=== PATIENT | female | born 1990 | race Caucasian/White ===

== ENCOUNTER 2016-07-26 19:18 | Emergency (ER) | payer OTHER ==
[~2016-07-26] VITALS: Ht 157.5 cm; Wt 50.0 kg
[~2016-07-26 19:18] MED LIST: TRAM50TA PO
[2016-07-26] MEDS ORDERED: SODIUM CHLOR 0.9% 1000 ML INJ 1,000 ML IV SCH ×2 (19:35→21:13)
[2016-07-26 19:39] VITALS: BP 96/51; PULSE 147; RESP 18; TEMP 99; O2SAT 100
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
[2016-07-26] MEDS ORDERED: SODIUM CHLORIDE 0.9% FLUSH 5 ML FLUSH IV FLUSH PRN (19:45)
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
[2016-07-26 20:15] LABS: AUTOMATED NEUTROPHIL # 5.4 TH/MM3 (1.8-7.7); BASOPHIL % 0.4 % (0.0-2.0); EOSINOPHIL % 0.2 % (0.0-4.0); HEMATOCRIT 32.4 % (35.0-46.0); HEMO FLAGS DIFF FINAL; LYMPH % 29.3 % (9.0-44.0); LYMPHOCYTE # 2.7 TH/MM3 (1.0-4.8); MEAN CELL VOLUME 67.4 FL (80.0-100.0); MEAN CORPUSCULAR HEMOGLOBIN 21.4 PG (27.0-34.0); MEAN CORPUSCULAR HGB CONC 31.7 % (32.0-36.0); MONO % 11.2 % (0.0-8.0); NEUT % 58.9 % (16.0-70.0); PLATELET COUNT 207 TH/MM3 (150-450); RED CELL DISTRIBUTION WIDTH 17.6 % (11.6-17.2); WHITE BLOOD COUNT 9.3 TH/MM3 (4.0-11.0)
[2016-07-26 20:37] LABS: ANION GAP 9 MEQ/L (5-15); AST (GOT) 6 U/L (15-37); BLOOD UREA NITROGEN 11 MG/DL (7-18); CHLORIDE 110 MEQ/L (98-107); GLOMERULAR FILTRATION RATE 123 ML/MIN (>89); POTASSIUM 3.1 MEQ/L (3.5-5.1); SODIUM (NA) 143 MEQ/L (136-145)
[2016-07-26 20:38] LABS: ALT (GPT) 15 U/L (10-53)
[2016-07-26 20:40] LABS: ALKALINE PHOSPHATASE 62 U/L (45-117); TOTAL BILIRUBIN ADULT 0.4 MG/DL (0.2-1.0)
[2016-07-26] MEDS ORDERED: CLINDAMYCIN 150 MG CAP PO ONE (21:15)
[2016-07-26] MEDS ORDERED: POTASSIUM CHLORIDE 25 MEQ EFFERVESCENT TAB PO ONE (21:15)
[2016-07-26 21:20] VITALS: BP 125/62; PULSE 92; RESP 18; O2SAT 100
[2016-07-26] MEDS ORDERED: HALOPERIDOL LACTATE 5 MG/ML AMP IM ONE (22:00)
[2016-07-26] MEDS ORDERED: diphenhydrAMINE HCL 50 MG/ML VIAL IM ONE (22:00)
[2016-07-26] MEDS ORDERED: CLIN1CAP5 PO (22:24)
[2016-07-26 23:30] VITALS: BP 139/87; PULSE 110; RESP 18; O2SAT 100
--- NOTE | 2016-07-27 07:09 | EKG ---
Date Performed: 07/26/2016 Time Performed: 19:49:26 PTAGE: 25 years EKG: SINUS TACHYCARDIA WITH SHORT MO INTERVAL NONSPECIFIC T-WAVE ABNORMALITY ABNORMAL RHYTHM ECG INTERPRETATION BASED ON A DEFAULT AGE OF 41 YEARS NO PREVIOUS TRACING DOCTOR: Malcom Abel Interpretating Date/Time 07/27/2016 07:09:04
== END 2016-07-27 06:59 | disposition home or self-care (01) ==
LOC: NEPE 19:18
DX: F19.129 Other psychoactive substance abuse with intoxication, unspecified (principal); K04.7 Periapical abscess without sinus; F17.210 Nicotine dependence, cigarettes, uncomplicated; R00.0 Tachycardia, unspecified
CPT/HCPCS: 80053; 80307; 83605; 84703; 85025; 93005; 96372; 99285; J1200; J1630; J7030

== ENCOUNTER 2016-10-09 15:18 | Emergency (ER) | payer OTHER ==
[~2016-10-09] VITALS: Ht 167.6 cm; Wt 72.0 kg
[~2016-10-09 15:18] MED LIST changes: +CLIN1CAP5 PO
[2016-10-09 15:21] VITALS: BP 154/66; PULSE 75; RESP 16; TEMP 98.4; O2SAT 99
[2016-10-09] MEDS ORDERED: SODIUM CHLOR 0.9% 1000 ML INJ 1,000 ML IV SCH (15:49)
[2016-10-09] MEDS ORDERED: ALUMINUM/MAGNESIUM/SIMETH 30 ML CUP PO ONE (16:00)
[2016-10-09] MEDS ORDERED: ONDANSETRON HCL 4 MG/2 ML VIAL IVP ONE (16:00)
[2016-10-09] MEDS ORDERED: SODIUM CHLORIDE 0.9% FLUSH 10 ML FLUSH IV FLUSH PRN (16:00)
[2016-10-09] MEDS ORDERED: PANTOPRAZOLE SODIUM 40 MG VIAL IVP ONE (16:00)
[2016-10-09] MEDS ORDERED: LIDOCAINE VISCOUS 2% SOLN 15 ML UDC PO ONE (16:00)
--- NOTE | 2016-10-09 16:04 | PD ---
HPI . Vomiting and upper abdominal pain Chief Complaint: GI Complaint Time Seen by Provider: 15:42 Travel History International Travel<30 days: No Contact w/Intl Traveler<30days: No Traveled to known affect area: No History of Present Illness HPI This patient presents complaining with vomiting and upper abdominal pain which started early this morning. This patient reports a long history of similar problems. She states that she had been on ulcer medication but stopped it about a month ago that did not seem to help. She states she has approximately 3 episodes per month of epigastric pain associated with vomiting. 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 She is unaware of any modifying factors. Her symptoms are severe. PFSH Past Medical History Depression: Yes (BIPOLAR DEPRESSION) Diminished Hearing: No Immunizations Current: Yes Ulcer: Yes Influenza Vaccination: No ?: Not LMP: 2 WEEKS Menopausal: No : 0 Para: 0 Miscarriage: 0 : 0 Ovarian Cysts: Yes Social History Alcohol Use: Yes (3-4 x/ MONTH) Tobacco Use: Yes (SMOKES, 1 PACK/ DAY) Substance Use: Yes (MARIJUANA) Allergies-Medications (Allergen,Severity, Reaction): Coded Allergies: No Known Allergies (Verified , 10/09/16) Reported Meds & Prescriptions Reported Meds & Active Scripts Active No Active Prescriptions or Reported Medications Review of Systems Except as stated in HPI: all other systems reviewed are Neg Cardiovascular: Positive: Chest Pain or Discomfort Gastrointestinal: Positive: Nausea, Vomiting, Abdominal Pain Physical Exam Narrative GENERAL: Patient was actively vomiting when I initially saw her. A few minutes later, she seemed to be resting comfortably on the stretcher. SKIN: Warm and dry. HEAD: Atraumatic. Normocephalic. EYES: Pupils equal and round. Extraocular movements are intact. ENT: No nasal bleeding or discharge. Mucous membranes pink and moist. NECK: Trachea midline. Neck is supple. CARDIOVASCULAR: Regular rate and rhythm. Heart sounds are normal. RESPIRATORY: No accessory muscle use. Lungs are clear with good air movement throughout. GASTROINTESTINAL: Abdomen soft. Normal bowel sounds. Diffuse upper abdominal tenderness with no guarding or rebound. No point tenderness. MUSCULOSKELETAL: No obvious deformities. No edema. NEUROLOGICAL: Awake and alert. No obvious cranial nerve deficits. Motor grossly within normal limits. Normal speech. PSYCHIATRIC: Appropriate mood and affect; insight and judgment normal. Data Data Last Documented VS Vital Signs Date Time Temp Pulse Resp B/P (MAP) Pulse Ox O2 Delivery O2 Flow Rate FiO2 10/09/16 15:21 98.4 75 16 154/66 (95) 99 Orders Orders Complete Blood Count With Diff (10/09/16 15:49) Comprehensive Metabolic Panel (10/09/16 15:49) Lipase (10/09/16 15:49) Iv Access Insert/Monitor (10/09/16 15:49) Ondansetron Inj (Zofran Inj) (10/09/16 16:00) Pantoprazole Inj (Protonix Inj) (10/09/16 16:00) Sodium Chlor 0.9% 1000 Ml Inj (Ns 1000 M (10/09/16 15:49) Sodium Chloride 0.9% Flush (Ns Flush) (10/09/16 16:00) Al-Mag Hy-Si 40-40-4 Mg/Ml Liq (Mag-Al P (10/09/16 16:00) Lidocaine 2% Viscous (Xylocaine 2% Visco (10/09/16 16:00) Ed Urine Pregnancytest Poc (10/09/16 15:49) Prochlorperazine Inj (Compazine Inj) (10/09/16 16:45) Diphenhydramine Inj (Benadryl Inj) (10/09/16 16:45) Sodium Chlor 0.9% 1000 Ml Inj (Ns 1000 M (10/09/16 17:15) Labs Laboratory Tests Test 10/09/16 15:50 White Blood Count 11.2 TH/MM3 Red Blood Count 5.92 MIL/MM3 Hemoglobin 12.5 GM/DL Hematocrit 40.7 % Mean Corpuscular Volume 68.8 FL Mean Corpuscular Hemoglobin 21.1 PG Mean Corpuscular Hemoglobin Concent 30.7 % Red Cell Distribution Width 16.6 % Platelet Count 362 TH/MM3 Mean Platelet Volume 10.3 FL Neutrophils (%) (Auto) 81.6 % Lymphocytes (%) (Auto) 15.7 % Monocytes (%) (Auto) 2.0 % Eosinophils (%) (Auto) 0.2 % Basophils (%) (Auto) 0.5 % Neutrophils # (Auto) 9.1 TH/MM3 Lymphocytes # (Auto) 1.8 TH/MM3 Monocytes # (Auto) 0.2 TH/MM3 Eosinophils # (Auto) 0.0 TH/MM3 Basophils # (Auto) 0.1 TH/MM3 CBC Comment AUTO DIFF Differential Comment AUTO DIFF CONFIRMED Blood Urea Nitrogen 10 MG/DL Creatinine 0.78 MG/DL Random Glucose 112 MG/DL Total Protein 8.6 GM/DL Albumin 3.9 GM/DL Calcium Level 9.5 MG/DL Alkaline Phosphatase 71 U/L Aspartate Amino Transf (AST/SGOT) 17 U/L Alanine Aminotransferase (ALT/SGPT) 21 U/L Total Bilirubin 0.3 MG/DL Sodium Level 138 MEQ/L Potassium Level 4.1 MEQ/L Chloride Level 102 MEQ/L Carbon Dioxide Level 26.4 MEQ/L Anion Gap 10 MEQ/L Estimat Glomerular Filtration Rate 90 ML/MIN Lipase 121 U/L MDM Medical Decision Making Medical Screen Exam Complete: Yes Emergency Medical Condition: Yes Medical Record Reviewed: Yes (this patient has been seen here intermittently dating back to 2008 with similar complaints. It looks like she is usually treated with a proton pump inhibitor and a GI cocktail.) Differential Diagnosis Differential diagnosis of abdominal pain includes but is not limited to gastritis, pancreatitis, hepatitis, gastroenteritis, gallbladder disease, constipation, urinary retention, UTI, peptic ulcer disease, diverticulitis or appendicitis Narrative Course This patient presents complaining with cyclical episodes of epigastric pain and vomiting. This is been going on since at least 2008. I will treat her here with IV fluids, IV Protonix and a GI cocktail. CBC & BMP Diagram 10/09/16 15:50 Total Protein 8.6 H, Albumin 3.9, Calcium Level 9.5, Alkaline Phosphatase 71, Aspartate Amino Transf (AST/SGOT) 17, Alanine Aminotransferase (ALT/SGPT) 21, Total Bilirubin 0.3 Lipase is normal. This patient's symptoms had improved following medication. However, she has started vomiting again. She is also continuing to complain with pain. I have subsequently treated the patient with Compazine and Benadryl along with an additional liter of fluid. The history, exam, diagnostic testing, and current condition do not suggest any significant pathology to warrant further testing, continued ED treatment, admission, or surgical evaluation at this point. The patient's condition is stable and appropriate for discharge. Diagnosis Primary Impression: Epigastric pain Additional Impression: Vomiting Qualified Codes: G43.A0 - Cyclical vomiting, not intractable Referrals: Primary Care Physician Dr. Lake Patient Instructions: Acute Nausea and Vomiting (DC), Epigastric Pain (ED), General Instructions Scripts Promethazine (Phenergan) 25 Mg Tablet 25 MG PO Q6H Y for NAUSEA OR VOMITING, #30 TAB 0 Refills Prov: Marcelle Burnette MD 10/09/16 Sucralfate (Carafate) 1 Gm Tab 1 GM PO QID for Ulcer Prevention, #120 TAB 0 Refills On empty stomach Prov: Marcelle Burnette MD 10/09/16 Omeprazole Magnesium (Prilosec) 20 Mg Tab 20 MG PO DAILY, #30 Prov: Marcelle Burnette MD 10/09/16 Disposition: 01 DISCHARGE HOME Condition: Stable Marcelle Burnette MD Oct 09, 2016 16:04
[2016-10-09 16:07] LABS: AUTOMATED NEUTROPHIL # 9.1 TH/MM3 (1.8-7.7); BASOPHIL # 0.1 TH/MM3 (0-0.2); BASOPHIL % 0.5 % (0.0-2.0); EOSINOPHIL % 0.2 % (0.0-4.0); HEMATOCRIT 40.7 % (35.0-46.0); LYMPH % 15.7 % (9.0-44.0); LYMPHOCYTE # 1.8 TH/MM3 (1.0-4.8); MEAN CELL VOLUME 68.8 FL (80.0-100.0); MEAN CORPUSCULAR HEMOGLOBIN 21.1 PG (27.0-34.0); MEAN CORPUSCULAR HGB CONC 30.7 % (32.0-36.0); NEUT % 81.6 % (16.0-70.0); PLATELET COUNT 362 TH/MM3 (150-450); RED BLOOD COUNT 5.92 MIL/MM3 (4.00-5.30); RED CELL DISTRIBUTION WIDTH 16.6 % (11.6-17.2); WHITE BLOOD COUNT 11.2 TH/MM3 (4.0-11.0)
[2016-10-09 16:08] LABS: CHLORIDE 102 MEQ/L (98-107); POTASSIUM 4.1 MEQ/L (3.5-5.1); SODIUM (NA) 138 MEQ/L (136-145)
[2016-10-09 16:10] LABS: HEMO FLAGS AUTO DIFF
[2016-10-09 16:12] LABS: ANION GAP 10 MEQ/L (5-15); BICARBONATE 26.4 MEQ/L (21.0-32.0); BLOOD UREA NITROGEN 10 MG/DL (7-18)
[2016-10-09 16:15] LABS: ALT (GPT) 21 U/L (10-53); AST (GOT) 17 U/L (15-37); GLOMERULAR FILTRATION RATE 90 ML/MIN (>89)
[2016-10-09 16:17] LABS: TOTAL BILIRUBIN ADULT 0.3 MG/DL (0.2-1.0)
[2016-10-09 16:18] LABS: ALKALINE PHOSPHATASE 71 U/L (45-117)
[2016-10-09 16:34] LABS: SCAN/DIFF AUTO DIFF CONFIRMED
[2016-10-09] MEDS ORDERED: PROCHLORPERAZINE INJ 10 MG/2 ML VIAL IV PUSH ONE (16:45)
[2016-10-09] MEDS ORDERED: diphenhydrAMINE HCL 50 MG/ML VIAL IV PUSH ONE (16:45)
[2016-10-09] MEDS ORDERED: SODIUM CHLOR 0.9% 1000 ML INJ 1,000 ML IV ONE (17:15)
[2016-10-09] MEDS ORDERED: PROM25TA10 PO (17:39)
[2016-10-09] MEDS ORDERED: CARA1TAB6 PO (17:39)
[2016-10-09] MEDS ORDERED: PRIL20TA2 PO (17:39)
[2016-10-09 17:46] VITALS: BP 119/64; PULSE 77; RESP 18; O2SAT 98
== END 2016-10-09 18:10 | disposition home or self-care (01) ==
LOC: PHED 15:18
DX: R10.13 Epigastric pain (principal); G43.A0 Cyclical vomiting, in migraine, not intractable; F17.210 Nicotine dependence, cigarettes, uncomplicated
CPT/HCPCS: 80053; 83690; 84703; 85025; 96361; 96374; 96375; 99284; C9113; J0780; J1200; J2405; J7030

== ENCOUNTER 2017-04-06 13:10 | Emergency (ER) | payer OTHER ==
[~2017-04-06] VITALS: Ht 167.6 cm; Wt 77.0 kg
[~2017-04-06 13:10] MED LIST changes: +CARA1TAB6 PO; -CLIN1CAP5 PO; +PRIL20TA2 PO; +PROM25TA10 PO; -TRAM50TA PO
[2017-04-06] MEDS ORDERED: SODIUM CHLOR 0.9% 1000 ML INJ 1,000 ML IV ONE ×2 (13:19→14:45)
[2017-04-06 13:22] VITALS: BP 126/61; PULSE 54; RESP 16; TEMP 97.6
[2017-04-06] MEDS ORDERED: diphenhydrAMINE HCL 50 MG/ML VIAL IV PUSH ONE (13:30)
[2017-04-06] MEDS ORDERED: PROCHLORPERAZINE INJ 10 MG/2 ML VIAL IV PUSH ONE (13:30)
[2017-04-06] MEDS ORDERED: SODIUM CHLORIDE 0.9% FLUSH 10 ML FLUSH IVF PRN (13:30)
--- NOTE | 2017-04-06 13:30 | PD ---
HPI . Vomiting Chief Complaint: GI Complaint Time Seen by Provider: 13:19 Travel History International Travel<30 days: No Contact w/Intl Traveler<30days: No Traveled to known affect area: No History of Present Illness HPI This patient presents by [facility] for the acute onset of abdominal pain associated with nausea and vomiting. Symptoms started this morning and have been continuous since that time. Her vomitus has become bilious. Her abdominal pain is upper and is rated 8/10. PFSH Past Medical History Depression: Yes (BIPOLAR DEPRESSION) Diminished Hearing: No Immunizations Current: Yes Ulcer: Yes ?: Not LMP: 04/05/17 Menopausal: No : 0 Para: 0 Miscarriage: 0 : 0 Ovarian Cysts: Yes Past Surgical History Surgical History: No Previous Surgery Social History Alcohol Use: No Tobacco Use: Yes (SMOKES, 1 PACK/ DAY) Substance Use: Yes (MARIJUANA) Allergies-Medications (Allergen,Severity, Reaction): Coded Allergies: amoxicillin (Verified Allergy, Unknown, 04/06/17) Reported Meds & Prescriptions Reported Meds & Active Scripts Active Phenergan (Promethazine HCl) 25 Mg Tablet 25 Mg PO Q6H PRN Carafate (Sucralfate) 1 Gm Tab 1 Gm PO QID On empty stomach Prilosec (Omeprazole Magnesium) 20 Mg Tab 20 Mg PO DAILY Review of Systems Except as stated in HPI: all other systems reviewed are Neg General / Constitutional: No: Fever, Chills Gastrointestinal: Positive: Nausea, Vomiting, Abdominal Pain Physical Exam Narrative GENERAL: Actively vomiting. SKIN: warm/dry. HEAD: Normocephalic. Atraumatic. EYES: Pupils equal and round. No scleral icterus. No injection or drainage. ENT: No nasal bleeding or discharge. Mucous membranes pink and moist. NECK: Trachea midline. Full range of motion without pain.. CARDIOVASCULAR: Regular rate and rhythm. RESPIRATORY: No accessory muscle use. Clear to auscultation. Breath sounds equal bilaterally. GASTROINTESTINAL: Abdomen soft. Nontender. Bowel sounds present. Nondistended. MUSCULOSKELETAL: No obvious deformities. NEUROLOGICAL: Awake and alert. No obvious cranial nerve deficits. Motor grossly within normal limits. Normal speech. PSYCHIATRIC: Appropriate mood and affect; insight and judgment normal. Data Data Last Documented VS Vital Signs Date Time Temp Pulse Resp B/P (MAP) Pulse Ox O2 Delivery O2 Flow Rate FiO2 04/06/17 13:22 97.6 54 16 126/61 (82) Orders Orders Complete Blood Count With Diff (04/06/17 13:19) Comprehensive Metabolic Panel (04/06/17 13:19) Lipase (04/06/17 13:19) Iv Access Insert/Monitor (04/06/17 13:19) Sodium Chlor 0.9% 1000 Ml Inj (Ns 1000 M (04/06/17 13:19) Sodium Chloride 0.9% Flush (Ns Flush) (04/06/17 13:30) Ed Urine Pregnancytest Poc (04/06/17 13:19) Diphenhydramine Inj (Benadryl Inj) (04/06/17 13:30) Prochlorperazine Inj (Compazine Inj) (04/06/17 13:30) Labs Laboratory Tests Test 04/06/17 13:40 White Blood Count 14.3 TH/MM3 Red Blood Count 5.57 MIL/MM3 Hemoglobin 11.9 GM/DL Hematocrit 37.4 % Mean Corpuscular Volume 67.1 FL Mean Corpuscular Hemoglobin 21.4 PG Mean Corpuscular Hemoglobin Concent 31.8 % Red Cell Distribution Width 16.5 % Platelet Count 206 TH/MM3 Mean Platelet Volume 10.6 FL Neutrophils (%) (Auto) 87.6 % Lymphocytes (%) (Auto) 8.3 % Monocytes (%) (Auto) 3.7 % Eosinophils (%) (Auto) 0.1 % Basophils (%) (Auto) 0.3 % Neutrophils # (Auto) 12.5 TH/MM3 Lymphocytes # (Auto) 1.2 TH/MM3 Monocytes # (Auto) 0.5 TH/MM3 Eosinophils # (Auto) 0.0 TH/MM3 Basophils # (Auto) 0.0 TH/MM3 CBC Comment DIFF FINAL Differential Comment Blood Urea Nitrogen 14 MG/DL Creatinine 0.83 MG/DL Random Glucose 112 MG/DL Total Protein 7.6 GM/DL Albumin 4.1 GM/DL Calcium Level 9.2 MG/DL Alkaline Phosphatase 73 U/L Aspartate Amino Transf (AST/SGOT) 11 U/L Alanine Aminotransferase (ALT/SGPT) 10 U/L Total Bilirubin 0.2 MG/DL Sodium Level 138 MEQ/L Potassium Level 3.7 MEQ/L Chloride Level 107 MEQ/L Carbon Dioxide Level 23.3 MEQ/L Anion Gap 8 MEQ/L Estimat Glomerular Filtration Rate 84 ML/MIN Lipase 94 U/L MDM Medical Decision Making Medical Screen Exam Complete: Yes Emergency Medical Condition: Yes Differential Diagnosis Differential diagnosis includes but is not limited to viral gastritis, food poisoning, pancreatitis, pneumonia, hepatitis, acute coronary syndrome, Narrative Course This patient presents with the acute onset of nausea and vomiting associated with upper abdominal pain. She was treated by [facility] with Zofran. She continues to have active vomiting despite the Zofran. I will treat her with Compazine and Benadryl. She will also be treated with IV fluids. Routine abdominal pain labs are pending. The patient has had no further vomiting since being treated with Compazine and Benadryl. CBC & BMP Diagram 04/06/17 13:40 Total Protein 7.6, Albumin 4.1, Calcium Level 9.2, Alkaline Phosphatase 73, Aspartate Amino Transf (AST/SGOT) 11 L, Alanine Aminotransferase (ALT/SGPT) 10, Total Bilirubin 0.2 Lipase 94 The history, exam, diagnostic testing, and current condition do not suggest any significant pathology to warrant further testing, continued ED treatment, admission, or surgical evaluation at this point. No EMC was found. The patient 's condition is stable and appropriate for discharge. Diagnosis Primary Impression: Vomiting Qualified Codes: R11.14 - Bilious vomiting Additional Impression: Abdominal pain Qualified Codes: R10.84 - Generalized abdominal pain Patient Instructions: Acute Nausea and Vomiting (DC), General Instructions Med/Other Pt SpecificInfo: Prescription(s) given Scripts Promethazine Supp (Phenergan Supp) 25 Mg Supp 25 MG RECTAL Q6H Y for NAUSEA OR VOMITING, #10 SUPP 0 Refills Prov: Marcelle Burnette MD 04/06/17 Disposition: 01 DISCHARGE HOME Condition: Stable Marcelle Burnette MD Apr 06, 2017 13:30
[2017-04-06 14:01] LABS: AUTOMATED NEUTROPHIL # 12.5 TH/MM3 (1.8-7.7); BASOPHIL % 0.3 % (0.0-2.0); EOSINOPHIL % 0.1 % (0.0-4.0); HEMATOCRIT 37.4 % (35.0-46.0); HEMOGLOBIN 11.9 GM/DL (11.6-15.3); LYMPH % 8.3 % (9.0-44.0); LYMPHOCYTE # 1.2 TH/MM3 (1.0-4.8); MEAN CELL VOLUME 67.1 FL (80.0-100.0); MEAN CORPUSCULAR HEMOGLOBIN 21.4 PG (27.0-34.0); MEAN CORPUSCULAR HGB CONC 31.8 % (32.0-36.0); MEAN PLATELET VOLUME 10.6 FL (7.0-11.0); MONO % 3.7 % (0.0-8.0); MONOCYTE # 0.5 TH/MM3 (0-0.9); NEUT % 87.6 % (16.0-70.0); PLATELET COUNT 206 TH/MM3 (150-450); RED BLOOD COUNT 5.57 MIL/MM3 (4.00-5.30); RED CELL DISTRIBUTION WIDTH 16.5 % (11.6-17.2); WHITE BLOOD COUNT 14.3 TH/MM3 (4.0-11.0)
[2017-04-06 14:16] LABS: ALBUMIN 4.1 GM/DL (3.4-5.0); AST (GOT) 11 U/L (15-37); BICARBONATE 23.3 MEQ/L (21.0-32.0); BLOOD UREA NITROGEN 14 MG/DL (7-18); CALCIUM 9.2 MG/DL (8.5-10.1); CHLORIDE 107 MEQ/L (98-107); CREATININE 0.83 MG/DL (0.50-1.00); GLOMERULAR FILTRATION RATE 84 ML/MIN (>89); GLUCOSE,RANDOM 112 MG/DL (74-106); SODIUM (NA) 138 MEQ/L (136-145)
[2017-04-06 14:18] LABS: ALT (GPT) 10 U/L (10-53)
[2017-04-06 14:19] LABS: ALKALINE PHOSPHATASE 73 U/L (45-117); TOTAL BILIRUBIN ADULT 0.2 MG/DL (0.2-1.0); TOTAL PROTEIN 7.6 GM/DL (6.4-8.2)
[2017-04-06] MEDS ORDERED: PROM1SUP7 RECTAL (14:35)
[2017-04-06] MEDS ORDERED: ONDANSETRON HCL 4 MG/2 ML VIAL IV PUSH ONE (14:45)
[2017-04-06 14:56] VITALS: BP 132/65; PULSE 92; RESP 18; O2SAT 100
== END 2017-04-06 15:59 | disposition home or self-care (01) ==
LOC: NEPD 13:10
DX: R11.14 Bilious vomiting (principal); R10.84 Generalized abdominal pain; F12.90 Cannabis use, unspecified, uncomplicated; F17.210 Nicotine dependence, cigarettes, uncomplicated
CPT/HCPCS: 80053; 83690; 84703; 85025; 96361; 96374; 96375; 99284; J0780; J1200; J2405; J7030